=== PATIENT | female | born 1950 ===

== ENCOUNTER 2017-06-05 07:18 | Day surgery (SDC) | payer OTHER ==
[2017-06-05 07:15] VITALS: BMI 23.8
[2017-06-05] MEDS ORDERED: Nitroglycerin 50mg in D5W 50 MG/250 ML BOTTLE IV ONE (07:50)
[2017-06-05] MEDS ORDERED: Iodixanol 320 MG/ML 100 ML BOTTLE IV ONE ×2 (07:50→11:08)
[2017-06-05] MEDS ORDERED: Iodixanol 320 MG/ML 200 ML BOTTLE IV ONE (07:50)
[2017-06-05] MEDS ORDERED: Lidocaine 2% Inj (20ml) ONE (07:50)
[2017-06-05] MEDS ORDERED: Midazolam 2 MG/2 ML VIAL ONE ×3 (08:37→10:29)
[2017-06-05] MEDS: Sodium Chloride 0.45% 1,000 ML IV SCH (13:15)
[2017-06-05] MEDS: Acetylcysteine 20% Inhal Soln (4ml) PO SCH (17:49)
[2017-06-05] MEDS: Oxycodone/Acetaminophen 5/325 mg Tab PO PRN (20:55)
[2017-06-06] MEDS: Sodium Chloride 0.45% 1,000 ML IV SCH (04:02)
[2017-06-06] MEDS: Oxycodone/Acetaminophen 5/325 mg Tab PO PRN (04:06)
--- NOTE | 2017-06-06 05:31 | CP.PCM.PN ---
Subjective - Date & Time of Evaluation Date of Evaluation: 06/06/17 Time of Evaluation: 05:28 - Subjective Subjective: Patient was seen at bedside because she still had the pain in left foot after she received percocet about 45 minutes ago. She also has head ache. She speaks citizen of [place]. Has no other complaints. Medical record was reviewed. This 66 year old woman was admitted with chronic wound in left foot. PMH:DM II , HTN, HLD, OR, stroke , chronic back pain. Objective - Vital Signs/Intake and Output Vital Signs (last 24 hours): Temp Pulse Resp BP Pulse Ox 98.0 F 69 19 116/64 96 06/06/17 00:17 06/06/17 02:00 06/06/17 00:17 06/06/17 00:17 06/06/17 00:17 - Medications Medications: Current Medications Acetylcysteine (Acetylcysteine 20%) 3 ml PO BID [facility] Stop: 06/06/17 18:00 Last Admin: 06/05/17 17:49 Dose: 3 ml Aspirin (Ecotrin) 81 mg PO DAILY [facility] Last Admin: 06/05/17 17:17 Dose: Not Given Atorvastatin Calcium (Lipitor) 40 mg PO DAILY [facility] Clopidogrel Bisulfate (Plavix) 75 mg PO DAILY [facility] Last Admin: 06/05/17 17:25 Dose: Not Given Sodium Chloride (Sodium Chloride 0.45%) 1,000 mls @ 60 mls/hr IV .[id number] [facility] Stop: 06/06/17 12:00 Last Admin: 06/06/17 04:02 Dose: 60 mls/hr Lisinopril (Zestril) 10 mg PO BID [facility] Last Admin: 06/05/17 17:50 Dose: 10 mg Metoprolol Tartrate (Lopressor) 25 mg PO BID [facility] Last Admin: 06/05/17 17:49 Dose: 25 mg Ondansetron HCl (Zofran Inj) 4 mg IVP ONCE PRN PRN Reason: Nausea/Vomiting Oxycodone/Acetaminophen (Percocet 5/325 Mg Tab) 1 tab PO Q4H PRN PRN Reason: Pain, moderate (4-7) Stop: 06/08/17 11:57 Last Admin: 06/06/17 04:06 Dose: 1 tab - Constitutional Appears: Well, No Acute Distress - Head Exam Head Exam: ATRAUMATIC, NORMAL INSPECTION, NORMOCEPHALIC - Eye Exam Eye Exam: Normal appearance - ENT Exam ENT Exam: Normal External Ear Exam - Neck Exam Neck Exam: Normal Inspection - Respiratory Exam Respiratory Exam: Prolonged Expiratory Phase - Cardiovascular Exam Cardiovascular Exam: absent: JVD - GI/Abdominal Exam GI & Abdominal Exam: absent: Distended - Rectal Exam Rectal Exam: Deferred - Exam Additional comments: Deferred. - Extremities Exam Extremities Exam: Normal Inspection - Back Exam Additional comments: Left foot has dressing on. - Neurological Exam Neurological Exam: Alert, Awake - Psychiatric Exam Psychiatric exam: Normal Affect, Normal Mood - Skin Skin Exam: Normal Color Assessment and Plan - Assessment and Plan (Free Text) Assessment: Headache. Left foot pain. 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 DM II. HTN. HLD. Plan: Toradol 15 mg IV stat. Continue present management.
[2017-06-06 06:13] VITALS: O2SAT 97
[2017-06-06 06:51] LABS: HEMOGLOBIN 9.5 gm/dL (12.0-16.0); MEAN CELL VOLUME 80.9 fL (80.0-105.0); MEAN CORPUSCULAR HEMOGLOBIN 26.7 pg (25.0-35.0); RBC 3.56 10^6/uL (3.5-6.1); RED CELL DISTRIBUTION WIDTH 16.7 % (11.5-14.5); WHITE BLOOD COUNT 16.1 10^3/ul (4.5-11.0)
[2017-06-06 07:17] LABS: CALCIUM 8.6 mg/dL (8.4-10.5)
[2017-06-06] MEDS ORDERED: Insulin Regular 1 UNITS/0.01 ML ML SC STA (08:51)
[2017-06-06] MEDS: Acetylcysteine 20% Inhal Soln (4ml) PO SCH (10:07)
[2017-06-06] MEDS ORDERED: Insulin Reg-LOW-Coverage SC SCH (11:30)
[2017-06-06 12:03] VITALS: BP 155/80; PULSE 75; RESP 20; TEMP 98
[2017-06-06] MEDS ORDERED: Insulin Detemir 100 units/ml Vial (Levemir) SC SCH (22:00)
--- NOTE | 2017-06-09 19:43 | VASCULAR ---
PROCEDURE: 1. Abdominal aortogram and bilateral lower extremity runoff with antegrade and retrograde punctures 2. Distal left SFA and above knee popliteal artery drug-eluting balloon angioplasty and stent placement 3. Left posterior tibial artery angioplasty and drug-eluting stent placement Or proximal left anterior tibial artery angioplasty HISTORY: Severe peripheral vascular disease. Poor surgical candidate with ischemic ulceration and gangrene of the left foot. PHYSICIAN(S): Heber De La Fuente M.D. TECHNIQUE: The relative risks and indications of the procedure were explained to the patient through a neurosurgery research director and consent obtained. The patient was hydrated prior to the procedure and the appropriate labs drawn. The patient was placed supine on the arteriogram table and the right groin prepped and draped in the usual sterile fashion. Conscious sedation and monitoring were provided throughout the procedure by a nurse. Via a right common femoral artery approach, a 5 Ch[place] sheath was placed in the right groin. Through the sheath and over a guidewire, a 5 [place]adian flush catheter was placed in the abdominal aorta at the level of the renal arteries and a PA DSA abdominal aortogram performed. The catheter was pulled down to the aortic bifurcation and bilateral oblique DSA pelvic arteriograms performed. Overlapping bilateral femoral arteriograms were obtained. The catheter was advanced over the bifurcation placed the proximal left SFA. DSA left lower extremity arteriogram was performed. 0.035 support wires placed in lay left SFA. A 7 Chadian 65 cm destination sheath was placed the left SFA. Heparin IV an intra-arterial nitroglycerin were given throughout the procedure. Initially a trailblaser catheter and various 0.035 and 0.014 guidewires were used in attempt to cross the disease in occluded left anterior tibial artery. These were unsuccessful. Subsequently various 0.035 and 0.014 guidewires were used attempt across the proximal left posterior tibial artery occlusion. Re-entry could not be obtained in the proximal left posterior tibial artery. An out back catheter was attempted. Subsequently the distal left posterior tibial artery was punctured in a retrograde direction with a micropuncture set. 0.014 guidewire was advanced to the knee. The guidewire were not re-entry are in the tibioperoneal trunk. The retrograde wire was uses a target for re-entry with the out back catheter in an antegrade direction. 0.014 wire was advanced out the 5 Chadian sheath in the distal left posterior tibial artery in both ends of the wire controlled. The left posterior tibial artery was dilated with a 3 mm balloon. A dissection some irregularity was identified at the re-entry site. Subsequently a 3.5 by 38 mm drug-eluting stent was placed in the proximal left posterior tibial artery at the re- entry site. An excellent angiographic result was obtained. Some spasm was noted in the distal left posterior tibial artery at the puncture site. This was treated with Vasa dilators. Distal left SFA and left popliteal artery above the knee were dilated with 5 mm x 150 drug coated balloon. The dissection was encounter. Subsequently areae was dilated with 6 mm x 200 balloon. Finally a 5.5 x 100 mm Supera stent was placed in the distal left SFA and popliteal arteries. 0.014 guidewires advanced through the distal stent into the diseased proximal left anterior tibial artery. The proximal anterior tibial artery was dilated with a 3.5 x 150 angioplasty balloon. No stent was placed. Sheath in the distal left posterior tibial artery was removed and manual hemostasis obtained. A Perclose device was utilized at the right groin. The patient tolerated the procedure well. FINDINGS: There are single renal arteries bilaterally with mild atherosclerotic change. The nephrograms are symmetric in appearance.. The infrarenal abdominal aorta is calcified and patent. Aortic bifurcation is patent. The common and external iliac arteries are widely patent. The internal iliac arteries are patent. There is very slow antegrade flow noted, consistent with low cardiac output. Right lower extremity: The right common femoral artery is patent. The right profunda femoral artery is patent. There is slow flow in the calcified but patent proximal to mid right SFA. Left lower extremity: Left common femoral artery is patent. The left profunda femoral artery is patent. The left superficial femoral artery is calcified and patent proximally. There are multiple moderate stenoses in the terminal left SFA. There is critical disease in the left popliteal artery at and below the knee. Proximal take-off to the left anterior tibial artery. Severe stenoses are noted in the proximal left anterior tibial artery. There is a distal occlusion of the left anterior tibial artery. The left dorsalis pedis artery is atretic and calcified. There is an 85 cm occlusion of the proximal left posterior tibial artery. The left posterior tibial artery is continuous to the foot. The plantar arch is disease but opacified. There is reconstitution of the distal left peroneal artery. IMPRESSION: 1.Successful drug-eluting balloon angioplasty and stent placement in the distal left SFA and popliteal arteries. 2. Successful recanalization of the proximal left posterior tibial artery with antegrade and retrograde punctures. Balloon angioplasty was performed with focal placement of a drug-eluting stent. 3. Unable to recannulize the distal left anterior tibial artery occlusion. The proximal left anterior tibial artery was successfully dilated 3.5 mm balloon. 4. Slow antegrade flow consistent with poor cardiac output.
== END 2017-06-06 13:55 | disposition short-term general hospital (02) ==
LOC: SDSVAS 07:18 → 2RSO 13:09 → SDSVAS 06-06 13:55
PROVIDERS: ATTEND Radiology Vascular & Interventional Radiology
DX: I70.262 Atherosclerosis of native arteries of extremities with gangrene, left leg (principal); L97.529 Non-pressure chronic ulcer of other part of left foot with unspecified severity; E11.52 Type 2 diabetes mellitus with diabetic peripheral angiopathy with gangrene; E11.621 Type 2 diabetes mellitus with foot ulcer; E11.69 Type 2 diabetes mellitus with other specified complication; M86.9 Osteomyelitis, unspecified; E78.5 Hyperlipidemia, unspecified; I10 Essential (primary) hypertension; R51 Headache; Z86.73 Personal history of transient ischemic attack (TIA), and cerebral infarction without residual deficits
CPT/HCPCS: 36247; 36415; 37226; 37230; 37232; 75716; 85027; 99152; 99153; C1725 ×8; C1760 ×2; C1769 ×5; C1876; C1885; C1887 ×3; C1894 ×2; J0690; J1644 ×2; J1885; J1940 ×2; J2250; J2405; J3010; J7030 ×2; Q9967